=== PATIENT | male | born 1935 | race African-American/Black ===

== ENCOUNTER → 2017-04-28 | Outpatient (CLI) | payer MEDICARE, OTHER ==
[~2017-04-28] MED LIST: ASPI-1182 PO; FINA5TAB41 PO; FURO20 PO; GADOBUTROL 1 MMOL/ML 10 ML VIAL IVP ONE; LISI-661 PO; ROSU20 PO; TERA5 PO
== END | disposition home or self-care (01) ==
LOC: RADMN 12:11
PROVIDERS: ATTEND Specialist
DX: H47.292 Other optic atrophy, left eye (principal); I67.82 Cerebral ischemia; R90.82 White matter disease, unspecified
CPT/HCPCS: 70553; A9585

== ENCOUNTER → 2018-09-09 | Outpatient (CLI) | payer MEDICARE, OTHER ==
[~2018-09-09] MED LIST changes: -GADOBUTROL 1 MMOL/ML 10 ML VIAL IVP ONE; -ROSU20 PO; +ROSU20TA23 PO; -TERA5 PO; +TERA5CAP12 PO
== END | disposition home or self-care (01) ==
LOC: RADPV 08:39
PROVIDERS: ATTEND Specialist
DX: I67.82 Cerebral ischemia (principal); I65.23 Occlusion and stenosis of bilateral carotid arteries
CPT/HCPCS: 70551; 93880